=== PATIENT | male | born 1945 | race Caucasian/White ===

== ENCOUNTER 2017-07-17 14:58 | Outpatient (CLI) | payer MEDICARE, OTHER | END 2017-07-17 14:59 | disposition home or self-care (01) | LOC: LAB 14:58 | PROVIDERS: ATTEND Specialist | DX: I49.9 Cardiac arrhythmia, unspecified (principal); E87.6 Hypokalemia; E03.9 Hypothyroidism, unspecified | CPT/HCPCS: 36415; 84132; 84443 ==

== ENCOUNTER 2022-08-15 16:25 | Outpatient (CLI) | payer MEDICARE, OTHER | END 2022-08-15 16:26 | disposition short-term general hospital (02) | LOC: EMS 16:25 | DX: R06.09 Other forms of dyspnea (principal); R53.1 Weakness | CPT/HCPCS: A0425; A0429; A0888 ==

== ENCOUNTER 2023-01-18 01:47 | Outpatient (CLI) | payer MEDICARE | END 2023-01-18 01:48 | disposition EMS.NT | LOC: EMS 01:47 | DX: Z03.89 Encounter for observation for other suspected diseases and conditions ruled out (principal) ==

== ENCOUNTER 2023-03-06 01:03 | Outpatient (CLI) | payer MEDICARE | END 2023-03-06 23:59 | disposition EMS.NT | LOC: EMS 01:03 | DX: S99.921A Unspecified injury of right foot, initial encounter (principal); W18.11XA Fall from or off toilet without subsequent striking against object, initial encounter; Y92.003 Bedroom of unspecified non-institutional (private) residence as the place of occurrence of the external cause ==

== ENCOUNTER 2023-03-20 06:33 | Outpatient (CLI) | payer MEDICARE | END 2023-03-20 06:34 | disposition EMS.NT | LOC: EMS 06:33 | DX: S51.811A Laceration without foreign body of right forearm, initial encounter (principal); S41.011A Laceration without foreign body of right shoulder, initial encounter; W06.XXXA Fall from bed, initial encounter; Y92.003 Bedroom of unspecified non-institutional (private) residence as the place of occurrence of the external cause ==

== ENCOUNTER 2023-03-20 09:14 | Outpatient (CLI) | payer MEDICARE | END 2023-03-20 09:15 | disposition left against medical advice (07) | LOC: EMS 09:14 | DX: S50.312A Abrasion of left elbow, initial encounter (principal); W06.XXXA Fall from bed, initial encounter; Y92.003 Bedroom of unspecified non-institutional (private) residence as the place of occurrence of the external cause ==